=== PATIENT | male | born 1980 | race Caucasian/White ===

== ENCOUNTER 2016-11-08 11:57 | Emergency (ER) | payer MEDICAID ==
[~2016-11-08] VITALS: Ht 172.7 cm; Wt 79.9 kg
[2016-11-08 12:16] VITALS: BP 142/78
[2016-11-08] MEDS ORDERED: HYDROcodone/APAP 5/325 TABLET ONE (12:54)
[2016-11-08] MEDS ORDERED: HYDROcodone/APAP 5/325 TABLET PO ONE (13:00)
[2016-11-08] MEDS ORDERED: DIPH,PERTUSS(ACELL),TET VAC/PF 0.5 ML IM-VACC ONE (13:47)
== END 2016-11-08 14:36 | disposition home or self-care (01) ==
LOC: ED 14:15
DX: S05.11XA Contusion of eyeball and orbital tissues, right eye, initial encounter (principal); S50.01XA Contusion of right elbow, initial encounter; S00.201A Unspecified superficial injury of right eyelid and periocular area, initial encounter; Y04.8XXA Assault by other bodily force, initial encounter; Y93.89 Activity, other specified; Y99.8 Other external cause status; Y92.410 Unspecified street and highway as the place of occurrence of the external cause
CPT/HCPCS: 70450; 70486

== ENCOUNTER 2017-02-28 15:39 | Emergency (ER) | payer SELFPAY ==
[~2017-02-28] VITALS: Ht 172.7 cm; Wt 74.6 kg
[2017-02-28 15:41] VITALS: BP 113/72
[2017-02-28] MEDS ORDERED: LIDOCAINE 1%, 20ML ONE (15:59)
[2017-02-28] MEDS ORDERED: CEPHALEXIN 500 MG CAPSULE PO STA (16:16)
[2017-02-28] MEDS ORDERED: CEPHALEXIN 500 MG CAPSULE ONE (16:22)
[2017-02-28] MEDS ORDERED: BACITRACIN ZINC OINT 500U/GM, 0.9 GM ONE (16:25)
== END 2017-02-28 17:05 | disposition home or self-care (01) ==
LOC: ED 16:40
DX: L03.012 Cellulitis of left finger (principal); L03.116 Cellulitis of left lower limb; F17.210 Nicotine dependence, cigarettes, uncomplicated
CPT/HCPCS: 10060

== ENCOUNTER 2017-03-09 06:47 | Emergency (ER) | payer OTHER ==
[~2017-03-09] VITALS: Ht 172.7 cm; Wt 73.8 kg
[2017-03-09 06:48] VITALS: BP 153/96
[2017-03-09] MEDS ORDERED: CEFAZOLIN 1,000 MG IM ONE (07:30)
[2017-03-09] MEDS ORDERED: CEFAZOLIN 1,000 MG ONE (07:31)
== END 2017-03-09 07:45 | disposition home or self-care (01) ==
LOC: ED 07:37
DX: L03.115 Cellulitis of right lower limb (principal)
CPT/HCPCS: 96372; 99283; J0690

== ENCOUNTER 2017-03-19 22:58 | Emergency (ER) | payer OTHER ==
[~2017-03-19] VITALS: Ht 167.6 cm; Wt 80.0 kg
[2017-03-19] MEDS ORDERED: ZIPRASIDONE 20 MG INJ IM ONE (23:30)
[2017-03-20] MEDS ORDERED: ZIPRASIDONE 20 MG INJ IM ONE (00:52)
[2017-03-20 04:18] VITALS: BP 110/72
== END 2017-03-20 04:21 | disposition home or self-care (01) ==
LOC: EDBD 23:38 → ED 23:38 → MERGE 23:38 → ED 03-20 04:21
DX: F10.121 Alcohol abuse with intoxication delirium (principal); F15.14 Other stimulant abuse with stimulant-induced mood disorder; Z72.9 Problem related to lifestyle, unspecified
CPT/HCPCS: 96372; 99283; J3486

== ENCOUNTER 2017-09-29 23:55 | Emergency (ER) | payer MEDICAID, OTHER ==
[~2017-09-29] VITALS: Ht 172.7 cm; Wt 82.0 kg
[2017-09-30] MEDS ORDERED: DIPH,PERTUSS(ACELL),TET VAC/PF 0.5 ML IM-VACC ONE ×3 (00:21→00:30)
[2017-09-30] MEDS ORDERED: BACITRACIN ZINC OINT 500U/GM, 0.9 GM ONE (03:13)
[2017-09-30 03:21] VITALS: BP 132/78
== END 2017-09-30 03:22 | disposition home or self-care (01) ==
LOC: ED 23:59
DX: S00.81XA Abrasion of other part of head, initial encounter (principal); S00.211A Abrasion of right eyelid and periocular area, initial encounter; F10.220 Alcohol dependence with intoxication, uncomplicated; Y04.0XXA Assault by unarmed brawl or fight, initial encounter; Y93.89 Activity, other specified; Y92.488 Other paved roadways as the place of occurrence of the external cause; Y99.8 Other external cause status
CPT/HCPCS: 70450; 70486; 72125; 90715; 96372; 99284

== ENCOUNTER 2018-05-17 00:55 | Emergency (ER) | payer MEDICAID ==
[~2018-05-17] VITALS: Ht 172.7 cm; Wt 74.0 kg
[2018-05-17 00:57] VITALS: BP 144/94
[2018-05-17] MEDS ORDERED: CEPHALEXIN 500 MG CAPSULE PO ONE (02:00)
[2018-05-17] MEDS ORDERED: SULFAMETH./TRIMETHOPRIM DS 800MG/160MG TABLET PO ONE (02:00)
[2018-05-17] MEDS ORDERED: CEPHALEXIN 500 MG CAPSULE ONE (02:01)
[2018-05-17] MEDS ORDERED: SULFAMETH./TRIMETHOPRIM DS 800MG/160MG TABLET ONE (02:01)
== END 2018-05-17 02:15 | disposition home or self-care (01) ==
LOC: ED 01:07
DX: L02.511 Cutaneous abscess of right hand (principal); L73.9 Follicular disorder, unspecified; R21 Rash and other nonspecific skin eruption; F17.200 Nicotine dependence, unspecified, uncomplicated
CPT/HCPCS: 71046; 99283

== ENCOUNTER 2018-07-16 17:59 | Emergency (ER) | payer MEDICAID ==
[~2018-07-16] VITALS: Ht 172.7 cm; Wt 80.0 kg
[2018-07-16 18:03] VITALS: BP 108/73
--- NOTE | 2018-07-16 18:32 | NUR ---
PT NO LONGER IN ROOM. GOWN ON [facility]. BLOOD NOTED ON FLOOR, ASSUMED TO HAVE COME FROM LAC THAT WAS CLEANED BY TECH. NO PERSONAL BELONGINGS NOTED IN ROOM. PT ASSUMED TO HAVE LEFT. INSTRUCTOR ROBOTICS AWARE.
== END 2018-07-16 18:40 | disposition left against medical advice (07) ==
LOC: EDBD → ED 18:34
DX: F10.129 Alcohol abuse with intoxication, unspecified (principal); Z53.21 Procedure and treatment not carried out due to patient leaving prior to being seen by health care provider

== ENCOUNTER 2018-07-27 02:18 | Emergency (ER) | payer MEDICAID ==
[~2018-07-27] VITALS: Ht 177.8 cm; Wt 76.7 kg
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
--- NOTE | 2018-07-27 02:30 | NUR ---
Upon further investigation into pt's previous visits, Tdap appears to have been given in 2017 here.
--- NOTE | 2018-07-27 02:35 | NUR ---
Dr. Adames at bedside to evaluate pt.
--- NOTE | 2018-07-27 02:56 | NUR ---
Pt to imaging, with tech, via guanjum.
--- NOTE | 2018-07-27 03:11 | NUR ---
Pt back to room from imaging.
--- NOTE | 2018-07-27 03:13 | NUR ---
Pt given urinal.
--- NOTE | 2018-07-27 03:14 | NUR ---
Lab at bedside.
--- NOTE | 2018-07-27 04:37 | NUR ---
NO SUTURES REQUIRED PER PA, AWAIT SOBRIETY FOR SAFE DISCHARGE.
--- NOTE | 2018-07-27 05:04 | NUR ---
RESTING QUIETLY, AWAIT SOBRIETY FOR SAFE DISCHARGE
--- NOTE | 2018-07-27 06:05 | NUR ---
SLEEPING SOUNDLY, AWAKEN LOUD VERBAL, STILL QUITE SOMNOLENT AND SOMEWHAT DIASAGREEABLE. MEAL TRAY ORDERED.
[2018-07-27 06:39] VITALS: BP 111/62
--- NOTE | 2018-07-27 06:58 | NUR ---
Report from Elana DONOVAN. Pt is resting in bed, respirations equal and non labored. NAD.
--- NOTE | 2018-07-27 08:04 | NUR ---
Pt given breakfast to eat. PT is currently eating.
--- NOTE | 2018-07-27 09:08 | NUR ---
Patient given discharge instructions and they have confirmed that they understand the instructions. Patient ambulatory with steady gait.
== END 2018-07-27 09:09 | disposition home or self-care (01) ==
LOC: ED 02:32
DX: S06.0X0A Concussion without loss of consciousness, initial encounter (principal); F10.120 Alcohol abuse with intoxication, uncomplicated; Y04.8XXA Assault by other bodily force, initial encounter; Y93.89 Activity, other specified; Y92.89 Other specified places as the place of occurrence of the external cause; Y99.8 Other external cause status
CPT/HCPCS: 36415; 70450; 80307; 99284

== ENCOUNTER 2019-02-03 22:03 | Emergency (ER) | payer MEDICAID ==
[~2019-02-03] VITALS: Ht 172.7 cm; Wt 75.0 kg
[2019-02-04 01:11] VITALS: BP 126/80
== END 2019-02-04 01:58 | disposition home or self-care (01) ==
LOC: ED 02-04 01:50
DX: F10.120 Alcohol abuse with intoxication, uncomplicated (principal); Z72.9 Problem related to lifestyle, unspecified
CPT/HCPCS: 99283

== ENCOUNTER 2019-07-26 18:47 | Emergency (ER) | payer MEDICAID ==
[~2019-07-26] VITALS: Ht 185.4 cm; Wt 95.0 kg
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
--- NOTE | 2019-07-26 19:30 | NUR ---
PT BEING VERBALLY AGRESSIVE TOWARDS RN, MINDYSING. RN DISCUSSED W PT THAT THE LANGUAGE IS INAPPROPIATE AND NEEDS TO COOPERATE IN ORDER TO REMOVE RESTRAINTS.
--- NOTE | 2019-07-26 19:57 | NUR ---
2 RESTRAINTS REMOVED, RIGHT ARM AND LEFT LEG. PT SLEEPING. VS STABLE.
--- NOTE | 2019-07-26 19:58 | NUR ---
received report from VENUS Kelly.
--- NOTE | 2019-07-26 19:58 | NUR ---
Rocio knapp in [facility] - 07/26/19 at 2105 by EMILIANO received report from VENUS Kelly.
--- NOTE | 2019-07-26 20:15 | NUR ---
ALL RESTRAINTS REMOVED. PT IS SLEEPING
--- NOTE | 2019-07-26 20:58 | NUR ---
REPORT TO JAIMEE
--- NOTE | 2019-07-26 20:58 | NUR ---
received report from VENUS Kelly.
--- NOTE | 2019-07-26 21:25 | NUR ---
patient sleeping .VSS
--- NOTE | 2019-07-26 21:48 | NUR ---
patient awake and alert and able to ambulate with steady gait.
--- NOTE | 2019-07-26 22:00 | NUR ---
patient discharged with instruction. verbalized understanding.
[2019-07-26 22:01] VITALS: BP 126/81
== END 2019-07-26 22:03 | disposition home or self-care (01) ==
LOC: ED 21:57
DX: F10.229 Alcohol dependence with intoxication, unspecified (principal); F17.200 Nicotine dependence, unspecified, uncomplicated; Y90.0 Blood alcohol level of less than 20 mg/100 ml
CPT/HCPCS: 99283

== ENCOUNTER 2019-09-15 10:33 | Emergency (ER) | payer MEDICAID ==
[~2019-09-15] VITALS: Ht 182.9 cm; Wt 90.0 kg
[2019-09-15 10:42] VITALS: BP 125/82
--- NOTE | 2019-09-15 11:19 | NUR ---
PT AGITATED, KICKING DOOR AND YELLING. SECURITY CALLED
--- NOTE | 2019-09-15 11:26 | NUR ---
PT REFUSED TREATMENT. STEADY SELF AMBULATION WITH SECURITY OUT OF ED.
[2019-09-15] MEDS ORDERED: LIDOCAINE-MPF 1%, 5ML INFIL ONE (11:30)
[2019-09-15] MEDS ORDERED: DIPH,PERTUSS(ACELL),TET VAC/PF 0.5 ML IM-VACC ONE (11:30)
== END 2019-09-15 11:28 | disposition left against medical advice (07) ==
LOC: ED 11:23
DX: S01.91XA Laceration without foreign body of unspecified part of head, initial encounter (principal); F10.229 Alcohol dependence with intoxication, unspecified; Y04.8XXA Assault by other bodily force, initial encounter; Y93.89 Activity, other specified; Y92.410 Unspecified street and highway as the place of occurrence of the external cause; Y99.8 Other external cause status; Y90.0 Blood alcohol level of less than 20 mg/100 ml
CPT/HCPCS: 99283

== ENCOUNTER 2019-11-26 12:57 | Emergency (ER) | payer MEDICAID ==
[~2019-11-26] VITALS: Ht 172.7 cm; Wt 75.0 kg
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
[2019-11-26] MEDS ORDERED: HYDROcodone/APAP 7.5-325MG/15ML UDC PO ONE (13:30)
[2019-11-26] MEDS ORDERED: LIDOCAINE-MPF 1%, 5ML INFIL ONE (13:30)
[2019-11-26] MEDS ORDERED: HYDROcodone/APAP 7.5-325MG/15ML UDC ONE (13:33)
[2019-11-26] MEDS ORDERED: LIDOCAINE-MPF 1%, 2ML ONE (13:33)
--- NOTE | 2019-11-26 13:36 | NUR ---
PT MEDICATED PER EMAR. PT TOLERATED WELL.
--- NOTE | 2019-11-26 13:58 | NUR ---
PA AT BEDSIDE FOR I&D AT THIS TIME.
[2019-11-26] MEDS ORDERED: CEFTRIAXONE 1,000 MG ONE (14:10)
[2019-11-26 14:12] VITALS: BP 155/96
--- NOTE | 2019-11-26 14:15 | NUR ---
PT MEDICATED PER EMAR. PT TOLERATED WELL.
[2019-11-26] MEDS ORDERED: CEFTRIAXONE 1,000 MG IM ONE (14:30)
== END 2019-11-26 14:44 | disposition home or self-care (01) ==
LOC: ED 13:28
DX: K02.9 Dental caries, unspecified (principal); F17.210 Nicotine dependence, cigarettes, uncomplicated
CPT/HCPCS: 41800; 96372; 99284; J0696

== ENCOUNTER 2019-12-15 11:54 | Emergency (ER) | payer MEDICAID ==
[~2019-12-15] VITALS: Ht 172.7 cm; Wt 75.6 kg
[2019-12-15 12:48] LABS: BASOPHILS # (AUTO) 0.06 x10^3/uL (0-0.1); BASOPHILS % (AUTO) 1 % (0-1); EOSINOPHILS % (AUTO) 2 % (1-7); LYMPHOCYTES # (AUTO) 1.33 x10^3/uL (1-3.4); LYMPHOCYTES % (AUTO) 23 % (22-44); MD NO; MEAN CORPUSCULAR HEMOGLOBIN 32.3 pg (27.5-34.5); MEAN CORPUSCULAR HGB CONC 33.2 g/dL (33.2-36.2); MEAN CORPUSCULAR VOLUME 97.4 fL (81-97); MEAN PLATELET VOLUME 7.7 fL (7.4-10.4); MONOCYTES # (AUTO) 0.61 x10^3/uL (0.2-0.8); MONOCYTES % (AUTO) 11 % (2-9); NEUTROPHILS # (AUTO) 3.73 x10^3/uL (1.8-6.8); NEUTROPHILS % (AUTO) 64 % (42-75); PLATELET COUNT 289 x10^3/uL (130-400); RED BLOOD COUNT 4.46 x10^6/uL (4.38-5.82); RED CELL DISTRIBUTION WIDTH 13.6 % (9.4-14.8)
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
[2019-12-15 12:53] LABS: ALBUMIN 3.5 g/dL (3.4-5.0); ANION GAP 8 mmol/L (5-15); CALCIUM 8.3 mg/dL (8.5-10.1); CHLORIDE 111 mmol/L (98-107)
[2019-12-15] MEDS ORDERED: ACETAMINOPHEN 500 MG TABLET ONE (13:11)
--- NOTE | 2019-12-15 13:16 | NUR ---
tylenol per aug. eyes cleaned. vss. awaiting ct. as
[2019-12-15 13:17] VITALS: BP 130/87
[2019-12-15] MEDS ORDERED: ACETAMINOPHEN 500 MG TABLET PO ONE (13:30)
--- NOTE | 2019-12-15 13:52 | NUR ---
to and from ct. as
[2019-12-15] MEDS ORDERED: OMNIPAQUE 350 MG/ML, 75ML BOTTLE ONE (14:15)
== END 2019-12-15 15:01 ==
LOC: ED 14:55
DX: S02.2XXA Fracture of nasal bones, initial encounter for closed fracture (principal); H10.023 Other mucopurulent conjunctivitis, bilateral; F17.200 Nicotine dependence, unspecified, uncomplicated; X58.XXXA Exposure to other specified factors, initial encounter; Y93.89 Activity, other specified; Y92.89 Other specified places as the place of occurrence of the external cause; Y99.8 Other external cause status
CPT/HCPCS: 36415; 70487; 80048; 82040; 85025; 99285; Q9967

== ENCOUNTER 2020-01-10 19:36 | Emergency (ER) | payer MEDICAID ==
[~2020-01-10] VITALS: Ht 172.7 cm; Wt 80.0 kg
[2020-01-10 19:40] VITALS: BP 122/76
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
[2020-01-10] MEDS ORDERED: DIPH,PERTUSS(ACELL),TET VAC/PF 0.5 ML IM-VACC ONE ×2 (20:00→20:25)
[2020-01-10] MEDS ORDERED: ACETAMINOPHEN 500 MG TABLET ONE (20:25)
[2020-01-10] MEDS ORDERED: ACETAMINOPHEN 500 MG TABLET PO ONE (20:30)
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
[2020-01-10 21:00] LABS: ANION GAP 11 mmol/L (5-15); CALCIUM 8.4 mg/dL (8.5-10.1); CHLORIDE 110 mmol/L (98-107)
[2020-01-10] MEDS ORDERED: LIDOCAINE 1%-EPI 1:100K, 20ML INFIL ONE (21:00)
[2020-01-10 21:01] LABS: BASOPHILS # (AUTO) 0.04 x10^3/uL (0-0.1); BASOPHILS % (AUTO) 1 % (0-1); EOSINOPHILS # (AUTO) 0.02 x10^3/uL (0-0.4); EOSINOPHILS % (AUTO) 0 % (1-7); LYMPHOCYTES # (AUTO) 0.63 x10^3/uL (1-3.4); LYMPHOCYTES % (AUTO) 8 % (22-44); MD NO; MEAN CORPUSCULAR HEMOGLOBIN 32.6 pg (27.5-34.5); MEAN CORPUSCULAR HGB CONC 33.1 g/dL (33.2-36.2); MEAN PLATELET VOLUME 7.5 fL (7.4-10.4); MONOCYTES # (AUTO) 0.59 x10^3/uL (0.2-0.8); MONOCYTES % (AUTO) 7 % (2-9); NEUTROPHILS # (AUTO) 6.78 x10^3/uL (1.8-6.8); NEUTROPHILS % (AUTO) 84 % (42-75); PLATELET COUNT 327 x10^3/uL (130-400); RED BLOOD COUNT 4.43 x10^6/uL (4.38-5.82); RED CELL DISTRIBUTION WIDTH 14.4 % (9.4-14.8)
[2020-01-10] MEDS ORDERED: LIDOCAINE 1%-EPI 1:100K, 20ML ONE (21:01)
[2020-01-10 21:05] LABS: CREATININE 0.81 mg/dL (0.7-1.3)
--- NOTE | 2020-01-10 21:28 | NUR ---
PA AT BEDSIDE STITCHING PATIENT AT THIS TIME
--- NOTE | 2020-01-10 22:47 | NUR ---
PATIENT WANTED TO LEAVE THE ER, PATIENTS ARM WAS CASTED BY TECH AND SOCK GAVE TO PATIENT WITH D/C PAPERWORK . PATIENT STEADILY AMBULATED OUT OF ER
== END 2020-01-10 22:49 | disposition home or self-care (01) ==
LOC: ED 21:28
DX: S01.01XA Laceration without foreign body of scalp, initial encounter (principal); S01.81XA Laceration without foreign body of other part of head, initial encounter; S09.90XA Unspecified injury of head, initial encounter; M25.531 Pain in right wrist; F10.220 Alcohol dependence with intoxication, uncomplicated; Z72.9 Problem related to lifestyle, unspecified; Y90.9 Presence of alcohol in blood, level not specified; X58.XXXA Exposure to other specified factors, initial encounter; Y93.89 Activity, other specified; Y92.89 Other specified places as the place of occurrence of the external cause; Y99.8 Other external cause status
CPT/HCPCS: 12052; 29125; 36415; 70450; 70486; 72125; 80048; 80307; 85025; 90471; 90715; 99285

== ENCOUNTER 2020-01-11 06:33 | Inpatient (IN) | payer MEDICAID ==
[~2020-01-11] VITALS: Ht 172.7 cm; Wt 80.9 kg
--- NOTE | 2020-01-11 07:23 | NUR ---
CLIPPING MARKER: PT WALKED BACK FROM LOBBY TO ROOM AT THIS TIME.
[2020-01-11] MEDS ORDERED: LORazepam 2 MG/ML, 1ML ONE ×2 (07:42→08:56)
[2020-01-11] MEDS ORDERED: ONDANSETRON 2MG/ML, 2ML ONE (07:42)
[2020-01-11] MEDS ORDERED: SODIUM CHLORIDE 0.9% 1,000ML IVBOLUS ONE ×2 (08:00→09:00)
[2020-01-11] MEDS ORDERED: ONDANSETRON 2MG/ML, 2ML IVPush ONE (08:00)
[2020-01-11] MEDS ORDERED: LORazepam 2 MG/ML, 1ML IVPush ONE ×2 (08:00→09:00)
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
--- NOTE | 2020-01-11 08:45 | NUR ---
PROSPECTING DRILLER AND MT AWARE PT MAY BE FLIGHT RISK AND HAS PIV.
--- NOTE | 2020-01-11 08:47 | NUR ---
PT LESS TREMULOUS AFTER MEDS, STILL TACHYCARDIC, OTHER VS WDL. PT RESTING MORE COMFORTABLY ON [place] W/ CALL LIGHT IN REACH. PILLOW AND WARM BLANKET PROVIDED FOR COMFORT.
[2020-01-11] MEDS ORDERED: KETOROLAC 30 MG/1 ML ONE (08:56)
[2020-01-11] MEDS ORDERED: KETOROLAC 30 MG/1 ML IVPush ONE (09:00)
--- NOTE | 2020-01-11 09:03 | NUR ---
PT PROVIDED URINAL PER PT REQUEST. MEDICATED PER EMAR. RESP EVEN AND UNLABORED, NADN.
[2020-01-11 10:26] LABS: BASOPHILS # (AUTO) 0.08 x10^3/uL (0-0.1); BASOPHILS % (AUTO) 1 % (0-1); EOSINOPHILS % (AUTO) 0 % (1-7); LYMPHOCYTES # (AUTO) 0.59 x10^3/uL (1-3.4); LYMPHOCYTES % (AUTO) 7 % (22-44); MD NO; MEAN CORPUSCULAR HGB CONC 33.6 g/dL (33.2-36.2); MEAN PLATELET VOLUME 8.3 fL (7.4-10.4); MONOCYTES # (AUTO) 0.78 x10^3/uL (0.2-0.8); MONOCYTES % (AUTO) 10 % (2-9); NEUTROPHILS # (AUTO) 6.51 x10^3/uL (1.8-6.8); NEUTROPHILS % (AUTO) 82 % (42-75); PLATELET COUNT 285 x10^3/uL (130-400); RED BLOOD COUNT 4.13 x10^6/uL (4.38-5.82); RED CELL DISTRIBUTION WIDTH 14.3 % (9.4-14.8)
[2020-01-11] MEDS ORDERED: DIAZEPAM 5 MG/ML, 2ML ONE (10:27)
[2020-01-11] MEDS ORDERED: DIAZEPAM 5 MG/ML, 2ML IV ONE (10:30)
--- NOTE | 2020-01-11 10:35 | NUR ---
PT MEDICATED PER EMAR.
[2020-01-11 10:36] LABS: ALANINE AMINOTRANSFERASE 119 U/L (12-78); ALBUMIN 3.6 g/dL (3.4-5.0); ANION GAP 9 mmol/L (5-15); CALCIUM 8.6 mg/dL (8.5-10.1); CHLORIDE 107 mmol/L (98-107)
[2020-01-11 10:38] LABS: ALKALINE PHOSPHATASE 126 U/L (45-117); BILIRUBIN,TOTAL 0.6 mg/dL (0.2-1.0); CREATININE 0.63 mg/dL (0.7-1.3)
--- NOTE | 2020-01-11 10:40 | NUR ---
SPOKE W/ DENZEL TABARES REGARDING URINE. OK TO SEND AND WILL ADD ON URINE TOX.
--- NOTE | 2020-01-11 10:56 | NUR ---
REPORT GIVEN TO VASILIY DONOVAN. PT RESTING ON GURNEY W/ CALL LIGHT IN REACH, SIDE RAILS UPX2. RESP EVEN AND UNLABORED, NADN. AWAITING URINE TOX.
--- NOTE | 2020-01-11 11:08 | NUR ---
PT LYING IN GURNEY, RESTLESS/FIDGETY WHEN AWAKE, THEN FALLS BACK ASLEEP. VSS AT THIS TIME, HR 90s. RV'WD POC WITH PT.
[2020-01-11 11:28] LABS: AMPHETAMINE SCREEN, URINE Negative (Negative); BARBITURATE SCREEN, URINE Negative (Negative); BENZODIAZEPINE SCREEN, URINE Negative (Negative); CANNABINOID SCREEN, URINE Positive (Negative); COCAINE SCREEN, URINE Negative (Negative); METHADONE SCREEN, URINE Negative (Negative); OPIATE SCREEN, URINE Negative (Negative)
[2020-01-11] MEDS ORDERED: CHLORDIAZEPOXIDE 25 MG CAPSULE PO ONE (12:00)
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
[2020-01-11] MEDS ORDERED: CHLORDIAZEPOXIDE 25 MG CAPSULE ONE ×2 (12:17→12:23)
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
[2020-01-11] MEDS ORDERED: DIAZEPAM 5 MG/ML, 10ML VIAL IV ONE (13:00)
[2020-01-11 14:50] VITALS: BP 143/88
[2020-01-11] MEDS ORDERED: SODIUM CHLORIDE 0.9% 1,000 ML IV SCH (15:11)
[2020-01-11] MEDS ORDERED: DOCUSATE 100 MG CAPSULE PO PRN (15:30)
[2020-01-11] MEDS ORDERED: BISACODYL 10 MG SUPP PR PRN (15:30)
[2020-01-11] MEDS ORDERED: hydrALAzine 20 MG/ML, 1ML IVPush PRN (15:30)
[2020-01-11] MEDS ORDERED: KETOROLAC 30 MG/1 ML IV PRN (15:30)
[2020-01-11] MEDS ORDERED: POLYETHYLENE GLYCOL 17 GM PACKET PO PRN (15:30)
[2020-01-11] MEDS ORDERED: LABETALOL 5MG/ML, 20ML IVPush PRN (15:30)
[2020-01-11] MEDS ORDERED: LORazepam 1MG TABLET PO PRN ×2 (15:30)
[2020-01-11] MEDS ORDERED: LORazepam 0.5MG TABLET PO PRN (15:30)
[2020-01-11] MEDS ORDERED: ACETAMINOPHEN 325 MG TABLET PO PRN (15:30)
[2020-01-11] MEDS ORDERED: ONDANSETRON ODT 4 MG PO PRN (15:30)
[2020-01-11] MEDS ORDERED: ONDANSETRON 2MG/ML, 2ML IVPush PRN (15:30)
[2020-01-11] MEDS ORDERED: LORazepam 2 MG/ML, 1ML IV PRN ×3 (15:30)
[2020-01-11] MEDS ORDERED: HYDROcodone/APAP 5/325 TABLET PO PRN (15:30)
[2020-01-11] MEDS ORDERED: NICOTINE 21 MG/24 HR PATCH.TD24 TD ONE (16:00)
[2020-01-11] MEDS ORDERED: ENOXAPARIN 40 MG/0.4 ML SQ SCH (16:00)
[2020-01-11] MEDS ORDERED: POTASSIUM CHLORIDE 20 MEQ, MAGNESIUM SULFATE 2 GM, THIAMINE 200 MG, MVI ADULT 10 ML, FO... IV SCH (16:30)
[2020-01-11] MEDS: LORazepam 1MG TABLET PO PRN ×3 (18:27→22:11)
[2020-01-11 19:47] VITALS: BP 139/94
[2020-01-12 00:12] VITALS: BP 139/81
[2020-01-12] MEDS: LORazepam 1MG TABLET PO PRN ×3 (00:19→05:05)
[2020-01-12] MEDS ORDERED: CHLORDIAZEPOXIDE 5 MG CAPSULE PO SCH (02:30)
[2020-01-12] MEDS: CHLORDIAZEPOXIDE 25 MG CAPSULE PO SCH ×2 (03:02→11:57)
[2020-01-12 04:53] LABS: BASOPHILS # (AUTO) 0.05 x10^3/uL (0-0.1); BASOPHILS % (AUTO) 1 % (0-1); EOSINOPHILS # (AUTO) 0.03 x10^3/uL (0-0.4); EOSINOPHILS % (AUTO) 0 % (1-7); LYMPHOCYTES # (AUTO) 0.66 x10^3/uL (1-3.4); LYMPHOCYTES % (AUTO) 9 % (22-44); MD NO; MEAN CORPUSCULAR HEMOGLOBIN 32.9 pg (27.5-34.5); MEAN CORPUSCULAR HGB CONC 33.5 g/dL (33.2-36.2); MEAN PLATELET VOLUME 8.3 fL (7.4-10.4); MONOCYTES # (AUTO) 0.79 x10^3/uL (0.2-0.8); MONOCYTES % (AUTO) 11 % (2-9); NEUTROPHILS # (AUTO) 5.57 x10^3/uL (1.8-6.8); NEUTROPHILS % (AUTO) 79 % (42-75); PLATELET COUNT 255 x10^3/uL (130-400); RED BLOOD COUNT 4.24 x10^6/uL (4.38-5.82); RED CELL DISTRIBUTION WIDTH 13.8 % (9.4-14.8)
[2020-01-12 04:54] LABS: ALANINE AMINOTRANSFERASE 84 U/L (12-78); ALBUMIN 3.1 g/dL (3.4-5.0); ANION GAP 5 mmol/L (5-15); CALCIUM 8.5 mg/dL (8.5-10.1); CHLORIDE 105 mmol/L (98-107); CREATININE 0.58 mg/dL (0.7-1.3)
[2020-01-12 04:56] LABS: ALKALINE PHOSPHATASE 111 U/L (45-117); BILIRUBIN,TOTAL 0.9 mg/dL (0.2-1.0); TOTAL PROTEIN 7.2 g/dL (6.4-8.2)
[2020-01-12] MEDS ORDERED: CHLORDIAZEPOXIDE 25 MG CAPSULE PO SCH (06:00)
[2020-01-12 08:58] VITALS: BP 143/80
[2020-01-12] MEDS ORDERED: POTASSIUM PHOSPHATE 22 MEQ in SODIUM CHLORIDE 0.9% 500 ML IV ONE (09:00)
== END 2020-01-12 12:38 | disposition left against medical advice (07) | DRG 433 ==
LOC: ED 08:05 → EDIP 12:48 → 4WST 14:00 → EDIP 14:07 → 4WST 14:32
PROVIDERS: ADMIT Internal Medicine; ATTEND Hospitalist
DX: K70.11 Alcoholic hepatitis with ascites (principal); F10.239 Alcohol dependence with withdrawal, unspecified; S52.501A Unspecified fracture of the lower end of right radius, initial encounter for closed fracture; Y90.0 Blood alcohol level of less than 20 mg/100 ml; R74.0 Nonspecific elevation of levels of transaminase and lactic acid dehydrogenase [LDH]; I10 Essential (primary) hypertension; F17.200 Nicotine dependence, unspecified, uncomplicated; S02.2XXA Fracture of nasal bones, initial encounter for closed fracture; Z53.29 Procedure and treatment not carried out because of patient's decision for other reasons; Z59.0 Homelessness
CPT/HCPCS: 36415; J7042; 80053; 80307; 83690; 83735; 84100; 85025; 99285; G0378; J1650; J1885; J2405; J3360; J3411; J3475; J3480; J2060; J7030; J7040

== ENCOUNTER 2020-01-15 03:58 | Emergency (ER) | payer MEDICAID ==
[~2020-01-15] VITALS: Ht 172.7 cm; Wt 76.3 kg
[2020-01-15 04:00] VITALS: BP 108/82
--- NOTE | 2020-01-15 04:11 | NUR ---
PT REFUSING CARE AT THIS TIME. SECURITY CALLED TO ESCORT PATIENT
--- NOTE | 2020-01-15 04:18 | NUR ---
INSIDE TESTER: PT. RAN DOWN LEY AND OUT OF ED. SHOUTING AT ALL STAFF USING FOUL LANGUAGE AND AGRESSIVE BEHAVIOR. SECURITY WAS ATTENDING TO ANOTHER CALL AND UNABLE TO ESCORT PT. OUT. PT. LEFT THROUGH THE FRONT DOORS. GAIT STEADY.
== END 2020-01-15 04:22 | disposition left against medical advice (07) ==
LOC: ED 04:11
DX: R04.0 Epistaxis (principal); R45.1 Restlessness and agitation; Z72.9 Problem related to lifestyle, unspecified
CPT/HCPCS: 99281

== ENCOUNTER 2020-01-21 21:39 | Emergency (ER) | payer MEDICAID ==
[~2020-01-21] VITALS: Ht 172.7 cm; Wt 70.0 kg
[2020-01-21 21:40] VITALS: BP 138/80
[2020-01-21] MEDS ORDERED: OXYMETAZOLINE NASAL SPRAY 0.05%,30ML ONE (21:44)
--- NOTE | 2020-01-21 21:47 | NUR ---
Afrin spray admin per aug and clamp applied via order. Rhino set up at bedside. Awaiting ERP.
[2020-01-21] MEDS ORDERED: OXYMETAZOLINE NASAL SPRAY 0.05%, 15ML NAS ONE (22:00)
== END 2020-01-21 22:32 | disposition home or self-care (01) ==
LOC: ED 22:15
DX: R04.0 Epistaxis (principal)
CPT/HCPCS: 99283